=== PATIENT | female | born 1995 | race Caucasian/White ===

== ENCOUNTER 2017-11-09 15:19 | Emergency (ER) | payer OTHER ==
[~2017-11-09] VITALS: Ht 157.5 cm; Wt 77.1 kg
[~2017-11-09 15:19] MED LIST: AMOX50SU PO; CODACEE120 PO; Veetids 500500 MG PO
[2017-11-09 16:54] LABS: BASOPHILS ABSOLUTE AUTO 0.02 K/mm3 (0.00-0.23); BASOPHILS PERCENT AUTO 0 % (0-2); EOSINOPHILS ABSOLUTE AUTO 0.06 K/mm3 (0.00-0.68); EOSINOPHILS PERCENT AUTO 1 % (0-6); Hematocrit 43.6 % (33.0-51.0); Hemoglobin 14.5 g/dL (11.5-16.0); IMMATURE GRAN ABSOLUTE AUTO 0.04 K/mm3 (0.00-0.10); IMMATURE GRAN PERCENT AUTO 0 % (0-1); LYMPHOCYTES ABSOLUTE AUTO 0.76 K/mm3 (0.84-5.20); LYMPHOCYTES PERCENT AUTO 7 % (21-46); MONOCYTES ABSOLUTE AUTO 0.45 K/mm3 (0.16-1.47); MONOCYTES PERCENT AUTO 4 % (4-13); Mean Corpuscular HGB Conc 33.3 g/dL (31.5-36.5); Mean Corpuscular Volume 93 fL (80-100); Mean Platelet Volume 10.9 fL (9.1-12.4); NEUTROPHILS PERCENT AUTO 87 % (41-73); Platelet Count 218 K/mm3 (150-400); RDW Coefficient Variation 12.3 % (11.7-14.2); RDW Standard Deviation 42.5 fL (35.1-46.3); Red Blood Cell Count 4.67 M/mm3 (3.80-5.20); White Blood Cell Count 10.53 K/mm3 (4.00-11.30)
[2017-11-09 17:22] LABS: Alanine Aminotransfer (ALT/SGP 20 U/L (12-78); Albumin, Blood 3.9 g/dL (3.4-5.0); Alk Phos 72 U/L (50-136); Anion Gap 12 mmol/L (6-16); Aspartate Aminotrans (AST/SGOT 18 U/L (12-37); Bilirubin, Total 0.7 mg/dL (0.1-1.0); Blood Urea Nitrogen 13 mg/dL (8-24); Bun/Creatinine Ratio 17.4 (12.0-20.0); CO2, Blood 20 mmol/L (21-32); Calcium, Blood 8.3 mg/dL (8.5-10.1); Chloride, Blood 108 mmol/L (98-108); Creatinine, Blood 0.75 mg/dL (0.40-1.00); Globulin, Blood 4.1 g/dL (2.2-4.0); Glomerular Filtration Rate >60 (60-); Glucose, Blood 83 mg/dL (70-99); Potassium, Blood 3.9 mmol/L (3.5-5.5); Sodium, Blood 140 mmol/L (136-145)
[2017-11-09 17:36] LABS: Source, Urine Clean Catch
[2017-11-09 17:40] LABS: Appearance, Urine Cloudy (Clear); Bilirubin, Urine Neg (Neg); Blood, Urine 1+ (Neg); Color, Urine Yellow (P-Yellow); Glucose Qualitative, Urine Neg (Neg); Ketones, Urine 2+ (Neg); Leukocyte Esterase, Urine Neg (Neg); Nitrite, Urine Neg (Neg); Protein, Urine Neg (Neg); Specific Gravity, Urine 1.025 (1.003-1.022); Urobilinogen, Urine NORM (Normal)
[2017-11-09 17:48] LABS: Amorphous Heavy (0-Heavy); Bacteria Few /hpf; Red Blood Cells, Urine 0-2 /hpf (0-2); Squamous Epithelial Cells Rare /hpf (Few); White Blood Cells, Urine 0-2 /hpf (0-5)
[2017-11-09] MEDS ORDERED: Zofran Odt4 MG PO (17:58)
== END 2017-11-09 18:07 | disposition home or self-care (01) ==
LOC: ER 15:19
PROVIDERS: Physician Assistant
DX: K52.9 Noninfective gastroenteritis and colitis, unspecified (principal); F17.210 Nicotine dependence, cigarettes, uncomplicated
CPT/HCPCS: 36415; 80053; 81001; 81025; 83690; 85025; 96361; 96374; 99283; J2405; J7030

== ENCOUNTER 2018-05-20 05:10 | Emergency (ER) | payer OTHER ==
[~2018-05-20] VITALS: Ht 157.5 cm; Wt 81.7 kg
[~2018-05-20 05:10] MED LIST changes: +Zofran Odt4 MG PO
[2018-05-20 05:43] LABS: BASOPHILS ABSOLUTE AUTO 0.04 K/mm3 (0.00-0.23); BASOPHILS PERCENT AUTO 0 % (0-2); EOSINOPHILS ABSOLUTE AUTO 0.18 K/mm3 (0.00-0.68); EOSINOPHILS PERCENT AUTO 2 % (0-6); Hematocrit 36.6 % (33.0-51.0); Hemoglobin 12.6 g/dL (11.5-16.0); IMMATURE GRAN ABSOLUTE AUTO 0.03 K/mm3 (0.00-0.10); IMMATURE GRAN PERCENT AUTO 0 % (0-1); LYMPHOCYTES ABSOLUTE AUTO 3.25 K/mm3 (0.84-5.20); LYMPHOCYTES PERCENT AUTO 32 % (21-46); MONOCYTES ABSOLUTE AUTO 0.85 K/mm3 (0.16-1.47); MONOCYTES PERCENT AUTO 8 % (4-13); Mean Corpuscular HGB 31.9 pg (26.0-34.0); Mean Corpuscular HGB Conc 34.4 g/dL (31.5-36.5); Mean Corpuscular Volume 93 fL (80-100); Mean Platelet Volume 10.4 fL (9.1-12.4); NEUTROPHILS ABSOLUTE AUTO 5.94 K/mm3 (1.96-9.15); NEUTROPHILS PERCENT AUTO 58 % (41-73); Platelet Count 254 K/mm3 (150-400); RDW Standard Deviation 41.1 fL (35.1-46.3); Red Blood Cell Count 3.95 M/mm3 (3.80-5.20); White Blood Cell Count 10.29 K/mm3 (4.00-11.30)
[2018-05-20 05:57] LABS: Alanine Aminotransfer (ALT/SGP 24 U/L (12-78); Albumin, Blood 3.7 g/dL (3.4-5.0); Alk Phos 89 U/L (50-136); Anion Gap 8 mmol/L (6-16); Aspartate Aminotrans (AST/SGOT 17 U/L (12-37); Bilirubin, Total 0.4 mg/dL (0.1-1.0); Blood Urea Nitrogen 20 mg/dL (8-24); Bun/Creatinine Ratio 17.9 (12.0-20.0); CO2, Blood 22 mmol/L (21-32); Calcium, Blood 8.8 mg/dL (8.5-10.1); Chloride, Blood 112 mmol/L (98-108); Creatinine, Blood 1.12 mg/dL (0.40-1.00); Globulin, Blood 3.7 g/dL (2.2-4.0); Glomerular Filtration Rate >60 (60-); Glucose, Blood 91 mg/dL (70-99); Potassium, Blood 3.7 mmol/L (3.5-5.5); Sodium, Blood 142 mmol/L (136-145); Total Protein, Blood 7.4 g/dL (6.4-8.2)
== END 2018-05-20 08:20 | disposition home or self-care (01) ==
LOC: ER 05:10
PROVIDERS: Emergency Medicine
DX: R10.9 Unspecified abdominal pain (principal); F17.210 Nicotine dependence, cigarettes, uncomplicated
CPT/HCPCS: 36415; 51798; 80053; 81000; 81025; 83690; 85025; 96360; 99284-25; J7030

== ENCOUNTER → 2021-03-22 | Outpatient (CLI) | payer OTHER ==
[~2021-03-22] MED LIST changes: +Amoxicillin875 MG PO; +ONDA4ODT MM
[2021-03-23 09:48] LABS: Candida species (DNA Probe) Negative (NEGATIVE); G. vaginalis (DNA Probe) Positive (NEGATIVE); T. vaginalis (DNA Probe) Positive (NEGATIVE)
[2021-03-25 01:08] LABS: CHLAMYDIA TRACHOMATIS, NAA Negative (Negative)
== END | disposition home or self-care (01) ==
LOC: LAB 15:00 → LAB SHORT 15:00 → LAB FUT 03-22 15:45 → LAB SHORT 03-22 15:45
PROVIDERS: Nurse Practitioner Family
DX: N76.0 Acute vaginitis (principal)
CPT/HCPCS: 87086; 87147; 87480; 87491; 87510; 87591; 87660

== ENCOUNTER 2022-10-27 23:06 | Inpatient (IN) | payer OTHER ==
[~2022-10-27] VITALS: Ht 165.1 cm; Wt 68.5 kg
[~2022-10-27 23:06] MED LIST changes: +AMOCLA875 PO; +NARCAN4 M1
[2022-10-27 23:38] LABS: Source, Urine Fem Cath
[2022-10-27 23:43] LABS: Hemoglobin 10.7 g/dL (11.5-16.0); Mean Corpuscular HGB 29.4 pg (26.0-34.0); Mean Corpuscular HGB Conc 34.5 g/dL (31.5-36.5); Mean Corpuscular Volume 85 fL (80-100); Mean Platelet Volume 10.6 fL (9.1-12.4); Platelet Count 181 K/mm3 (150-400); RDW Coefficient Variation 13.1 % (11.7-14.2); RDW Standard Deviation 40.8 fL (35.1-46.3); Red Blood Cell Count 3.64 M/mm3 (3.80-5.20); White Blood Cell Count 11.66 K/mm3 (4.00-11.30)
[2022-10-27 23:49] LABS: Blood, Urine 4+ (Neg); Glucose Qualitative, Urine Neg (Neg); Ketones, Urine Neg (Neg); Leukocyte Esterase, Urine 1+ (Neg); Nitrite, Urine Neg (Neg); Protein, Urine 3+ (Neg); Urobilinogen, Urine 3+ (Normal)
[2022-10-27 23:51] LABS: Appearance, Urine Hazy (Clear); Bilirubin, Urine 1+ (Neg); Color, Urine Amber (P-Yellow)
[2022-10-27 23:59] LABS: Amorphous Light (0-Heavy); Bacteria Few /hpf; Squamous Epithelial Cells Few /hpf (Few); White Blood Cells, Urine 0-2 /hpf (0-5)
[2022-10-28 00:01] LABS: Albumin, Blood 2.6 g/dL (3.4-5.0); Albumin/Globulin Ratio 0.5 (0.8-1.8); Bilirubin, Total 0.6 mg/dL (0.1-1.0); Calcium, Blood 8.6 mg/dL (8.5-10.1); Creatinine, Blood 0.71 mg/dL (0.40-1.00); Potassium, Blood 3.4 mmol/L (3.5-5.5); Total Protein, Blood 7.6 g/dL (6.4-8.2)
[2022-10-28 00:06] LABS: BAND PERCENT MAN 16 % (0-8); BASOPHILS ABSOLUTE MAN 0.11 K/mm3 (0.00-0.23); BASOPHILS PERCENT MAN 1 % (0-2); EOSINOPHILS PERCENT MAN 0 % (0-6); LYMPHOCYTES ABSOLUTE MAN 0.46 K/mm3 (0.84-5.20); LYMPHOCYTES PERCENT MAN 4 % (21-46); MONOCYTES ABSOLUTE MAN 0.34 K/mm3 (0.16-1.47); MONOCYTES PERCENT MAN 3 % (4-13); NEUTROPHILS ABSOLUTE MAN 10.72 K/mm3 (1.96-9.15); SEG NEUTROPHILS PERCENT MAN 76 % (41-73); TOTAL CELLS COUNTED 100
[2022-10-28 05:10] LABS: BASOPHILS ABSOLUTE AUTO 0.05 K/mm3 (0.00-0.23); BASOPHILS PERCENT AUTO 1 % (0-2); EOSINOPHILS ABSOLUTE AUTO 0.09 K/mm3 (0.00-0.68); EOSINOPHILS PERCENT AUTO 1 % (0-6); Hematocrit 27.4 % (33.0-51.0); Hemoglobin 9.1 g/dL (11.5-16.0); IMMATURE GRAN PERCENT AUTO 2 % (0-1); LYMPHOCYTES ABSOLUTE AUTO 0.81 K/mm3 (0.84-5.20); LYMPHOCYTES PERCENT AUTO 7 % (21-46); MONOCYTES ABSOLUTE AUTO 0.74 K/mm3 (0.16-1.47); MONOCYTES PERCENT AUTO 7 % (4-13); Mean Corpuscular HGB 28.5 pg (26.0-34.0); Mean Corpuscular HGB Conc 33.2 g/dL (31.5-36.5); Mean Corpuscular Volume 86 fL (80-100); Mean Platelet Volume 10.7 fL (9.1-12.4); NEUTROPHILS ABSOLUTE AUTO 9.15 K/mm3 (1.96-9.15); NEUTROPHILS PERCENT AUTO 83 % (41-73); Platelet Count 165 K/mm3 (150-400); RDW Coefficient Variation 13.2 % (11.7-14.2); RDW Standard Deviation 41.5 fL (35.1-46.3); Red Blood Cell Count 3.19 M/mm3 (3.80-5.20); White Blood Cell Count 11.04 K/mm3 (4.00-11.30)
--- NOTE | 2022-10-28 05:33 | NUR ---
END OF SHIFT NURSING REPORT - PM Patient admitted this am at 0235 for cellulities of the left arm. She admitted taking IV strret drugs methamphetamine, fentanyl and snotting white powder. She is AO upon admission to medical, and able to communicate clearly her wishes and needs. She received Flu Vaccine and IV antibiotics. NS infusing at 150ml/he to Right FA20g IV. Dad spent the night in room waiting for transportation back home. Skin assessment Left arm - open puncture site 1cm x 1cm Left arm - cellulities of the arm. Skin warm to touch, edema +3 Left Lateral Thigh - open scab 4cm X 4cm Left knee - open scab 1cm X 1cm MOUTH - exterior right side sour -Pictures taken and filed in chart.
[2022-10-28 06:25] LABS: Bun/Creatinine Ratio 24.9 (12.0-20.0); Calcium, Blood 7.9 mg/dL (8.5-10.1); Creatinine, Blood 0.84 mg/dL (0.40-1.00); Potassium, Blood 3.7 mmol/L (3.5-5.5)
--- NOTE | 2022-10-28 13:13 | NUR ---
NOTES SUMMARY: PATIENT ALERT AND ORIENTED TO SELF, CURRENT SITUATION, PLACE AND PERSON. PATIENT HAS TROUBLE RECALLING THE SPICIC DAY, DATE, MONTH AND YEAR. PATIENT ADMITTED WITH DX OF SEPSIS. PATIENT HAS CELLULITS TO L ARM. PER PATIENT FROM IV DRUG USE. RECEIVED IV ABX. VITAL SIGNS REVIEWED. DENIES CP/PRESSURE. THIS RN HEARED THE PATIENT PHONE RINGING, ASSIST PATIENT TO ANSWER THE PHONE. MOM CALLED OVER THE PHONE AND SPOKE c PATIENT. THIS RN LEFT THE ROOM TO GET PATIENT IV ABX. WHEN THIS RN BACK IN ROOM, THIS RN NOTICE PATIENT HAS BLOOD IN HAND AND GOWN AND NOTICE IV HAS BEEN PULLED. THIS RN ASK THE PATIENT OF WHY SHE PULLED HER IV AND TELE MONITOR. PER PATIENT "MY MOM IS COMING AND I WANNA GO OUTSIDE TO SMOKE AND I NEED SOMETHING.". FEW MINUTES LATER MOM ARRIVED TO ROOM AN IMMEDIATELY PATIENT REQUESTING MOM TO GO OUTSIDE WITH HER. THIS RN EXPLAIN TO MOM THE HOSPITAL POLICY REGARDING SMOKING. MOM STATED UNDERSTANDING AND TRY TO CONVINCED PATIENT TO STAY IN ROOM. PATIENT WAS AGREEABLE AND DECIDED TO TAKE A SHOWER INSTEAD. THIS RN ASSIST PATIENT IN SHOWER. RIGHT AFTER PATIENT HAD A SHOWER EDUCATE PATIENT THAT SHE NEEDS AN IV PLACEMENT D/T IV ABX SCHEDULED AND IV PAIN MEDS. PATIENT WAS AGREEABLE UNTIL THIS RN ABOUT TO POKE THE PATIENT, THEN BECOME REALLY ANXIOUS. PER PATIENT "I WANT TO LEAVE. I DON'T WANNA STAY. EDUCATE PATIENT THE RISK AND BENIFITS OF STAYING AND LIVING THE HOSPITAL AMA. PER PATIENT "IT'S OKAY, I WILL TAKE MY CHANCES. OFFERED NICOTINE PATCH, BUT PATIENT DECLINE. CALLED DR. KHAN TO REPORT, PATIENT PULLED HER IV AND WANTING TO LEAVE AMA. PER DR. ROJO SHE NEEDS TO HAVE AND IV PLACEMENT FOR ABX, BUT IF PATIENT WANTS TO LEAVE WE CANNOT STOP HER. EPIC ANALYST, ALICIA LEO WAS NOTIFIED AND SPOKE WITH PATIENT MOM IN ROOM. PATIENT SIGN AMA FORM. PATIENT LEFT THE ROOM AT 1312. ALL PATIENT PERSONAL BELONGINGS WERE SENT WITH THE PATIENT.
[2022-10-29 07:08] LABS: HIV AB/P24 AG SCREEN Non Reactive (Non Reactive)
[2022-11-01 08:10] LABS: HBSAG SCREEN Negative (Negative); HCV AB Reactive (Non Reactive); HEP A AB, IGM Negative (Negative); HEP B CORE AB, TOT Negative (Negative); HEPATITIS C QUANTITATION HCV Not Detected IU/mL (.)
== END 2022-10-28 13:13 | disposition left against medical advice (07) | DRG 872 ==
LOC: ER 23:06 → MEDS 10-28 01:11
PROVIDERS: Emergency Medicine; ADMIT Internal Medicine
DX: A40.0 Sepsis due to streptococcus, group A (principal); L03.114 Cellulitis of left upper limb; E87.1 Hypo-osmolality and hyponatremia; E87.6 Hypokalemia; F17.210 Nicotine dependence, cigarettes, uncomplicated; F29 Unspecified psychosis not due to a substance or known physiological condition; F11.10 Opioid abuse, uncomplicated; F15.10 Other stimulant abuse, uncomplicated; D64.9 Anemia, unspecified; Z23 Encounter for immunization; Z88.0 Allergy status to penicillin; Z79.899 Other long term (current) drug therapy; Z79.2 Long term (current) use of antibiotics; Z71.51 Drug abuse counseling and surveillance of drug abuser
CPT/HCPCS: 36415; 80048; 80053; 81001; 83605; 85025; 86704; 86708; 86803; 87040; 87147; 87340; 87389; 90686; 93005; 93010; 96361; 96365; 99285-25; A9270; J1650; J3370; J7030; J7050; P9612